=== PATIENT | female | born 1965 | race Caucasian/White ===

== ENCOUNTER 2019-08-09 08:14 | Emergency (ER) | payer OTHER ==
[~2019-08-09] VITALS: Ht 167.6 cm; Wt 65.8 kg
[2019-08-09] MEDS ORDERED: PANT20 (08:28)
[2019-08-09] MEDS ORDERED: ONDA4ODT MM (11:05)
[2019-08-09] MEDS ORDERED: Motion Sickness25 M1 PO (11:05)
== END 2019-08-09 11:18 | disposition home or self-care (01) ==
LOC: ER 08:14
DX: H81.399 Other peripheral vertigo, unspecified ear (principal); R51 Headache; Z79.899 Other long term (current) drug therapy
CPT/HCPCS: 70450; 72125; 96374; 96375; 99284-25; J1200; J1885; J2765; J7030

== ENCOUNTER → 2020-07-10 | Outpatient (CLI) | payer OTHER ==
[~2020-07-10] MED LIST: Motion Sickness25 M1 PO; ONDA4ODT MM; PANT20
== END | disposition home or self-care (01) ==
LOC: PLD 11:46 → LAB SHORT 11:46
DX: D48.5 Neoplasm of uncertain behavior of skin (principal)
CPT/HCPCS: 88305

== ENCOUNTER → 2022-03-20 | Outpatient (CLI) | payer OTHER ==
[2022-03-24 14:11] LABS: HPV 16 Negative (Negative); HPV 18 Negative (Negative); HPV OTHER HR TYPES Negative (Negative)
== END ==
LOC: LAB SHORT 12:18 → LAB 12:18
PROVIDERS: Family Medicine
DX: Z12.4 Encounter for screening for malignant neoplasm of cervix (principal)
CPT/HCPCS: 87624; G0123